=== PATIENT | female | born 1965 | race Caucasian/White ===

== ENCOUNTER 2025-02-04 01:18 | Emergency (ER) | payer OTHER ==
[2025-02-04] MEDS: PB/HYOSCY/ATR/SCOP/LIDO/MAALOX 55 ML BOTTLE PO ONE (04:23)
[2025-02-04 05:53] VITALS: BP 141/78; PULSE 70; RESP 19; TEMP 97.3
== END 2025-02-04 06:37 | disposition home or self-care (01) ==
LOC: EMS 01:19
DX: K30 Functional dyspepsia (principal); R14.0 Abdominal distension (gaseous); E03.9 Hypothyroidism, unspecified; Z98.890 Other specified postprocedural states
CPT/HCPCS: 93005; 99283